=== PATIENT | female | born 1955 | race Caucasian/White ===

== ENCOUNTER 2017-12-21 07:14 | Emergency (ER) | payer OTHER ==
[~2017-12-21] VITALS: Ht 167.6 cm; Wt 78.9 kg
[~2017-12-21 07:14] MED LIST: GLUMETZA1000 MG; SYNTHROID50 MCG
[2017-12-21] MEDS ORDERED: COZAAR25 MG (07:21)
== END 2017-12-21 09:03 | disposition home or self-care (01) ==
LOC: ER 07:14
DX: M54.89 Other dorsalgia (principal)